=== PATIENT | female | born 1965 | race Caucasian/White ===

== ENCOUNTER 2019-07-21 09:58 | Emergency (ER) | payer SELFPAY, BC ==
[2019-07-21] MEDS: LIDOCAINE/MYLANTA 40 ML BTL PO (12:01)
== END 2019-07-21 12:22 | disposition home or self-care (01) ==
LOC: FTE 09:58
DX: R09.89 Other specified symptoms and signs involving the circulatory and respiratory systems (principal)
CPT/HCPCS: 99283